=== PATIENT | female | born 1960 | race Caucasian/White ===

== ENCOUNTER 2019-11-22 13:08 | Outpatient (CLI) | payer MEDICARE, OTHER ==
[2019-11-22] MEDS ORDERED: LIDOCAINE-MPF 1%, 5ML ONE (13:17)
[2019-11-22] MEDS ORDERED: ROPivacaine/PF 0.2%, 10 ML ONE (13:17)
[2019-11-22] MEDS ORDERED: TRIAMCINOLONE ACETONIDE 40 MG/ML, 1ML ONE (13:17)
[2019-11-22] MEDS ORDERED: OMNIPAQUE 300 MG/ML, 10ML VIAL ONE (15:39)
== END 2019-11-22 23:59 | disposition home or self-care (01) ==
LOC: RAD 13:08
PROVIDERS: ATTEND Nurse Practitioner
DX: M19.072 Primary osteoarthritis, left ankle and foot (principal); G90.522 Complex regional pain syndrome I of left lower limb
CPT/HCPCS: 20605; 77002; J2795; J3301; Q9967

== ENCOUNTER 2020-03-20 08:00 | Outpatient (CLI) | payer MEDICARE, OTHER ==
[~2020-03-20 08:00] MED LIST: LIDOCAINE-MPF 1%, 5ML ONE; ROPivacaine/PF 0.2%, 10 ML ONE; TRIAMCINOLONE ACETONIDE 40 MG/ML, 1ML ONE
[2020-03-20] MEDS ORDERED: TRIAMCINOLONE ACETONIDE 40 MG/ML, 1ML ONE ×2 (14:56→15:19)
[2020-03-20] MEDS ORDERED: BUPIVACAINE/PF 0.5% ONE (14:56)
[2020-03-20] MEDS ORDERED: LIDOCAINE 1%, 10ML ONE (14:56)
[2020-03-20] MEDS ORDERED: OMNIPAQUE 300 MG/ML, 10ML VIAL ONE ×2 (15:00)
== END 2020-03-20 23:59 | disposition home or self-care (01) ==
LOC: RAD 08:00
PROVIDERS: ATTEND Nurse Practitioner
DX: M19.072 Primary osteoarthritis, left ankle and foot (principal); G90.522 Complex regional pain syndrome I of left lower limb
CPT/HCPCS: 20600; 77002; Q9967; J2795; J3301

== ENCOUNTER 2020-04-02 06:50 | Inpatient (IN) | payer MEDICARE, OTHER ==
[~2020-04-02] VITALS: Ht 162.6 cm; Wt 101.5 kg
[2020-04-02] MEDS ORDERED: FENTANYL PF 100 MCG/2ML ONE (06:57)
[2020-04-02] MEDS ORDERED: BIVALIRUDIN 250 MG ONE ×2 (06:57→08:15)
[2020-04-02] MEDS ORDERED: MIDAZOLAM 1 MG/ML, 5ML ONE (06:57)
[2020-04-02] MEDS ORDERED: TICAGRELOR 90 MG TABLET ONE (06:57)
[2020-04-02] MEDS ORDERED: VERAPAMIL 2.5 MG/ML, 2ML ONE (06:57)
[2020-04-02] MEDS ORDERED: LIDOCAINE 1%, 20ML ONE (06:57)
[2020-04-02] MEDS ORDERED: HEPARIN 25,000 UNITS/250ML PMX 250 ML ONE ×2 (06:58→15:42)
--- NOTE | 2020-04-02 06:59 | NUR ---
Code cardiac called @ 0635 Cardiology called @ 0637 general production laborer aware @ 0639 Dr. Archibald called back @ 0641 1 person here from labor contractor @ 0700 Dr. Archibald here @ 0701
--- NOTE | 2020-04-02 07:00 | NUR ---
PT B[place] [facility] [place] [facility] [place] STATES SUBSTERNAL CP RADIATING TO HER BACK STARTING YESTERDAY. PT CAME TO ER LAST NIGHT AROUND 0300. PT WITH REPORTED EKG CHANGS AND +TROP. PT SENT TRANSFERED FOR POSSIBLE CARDIAC CATH. ENROUTE, PT GIVEN ASA 324MG WELL FENTANYL 50MCG. ENDODONTIST, HEPARIN GTT INITIATED, 4000UNIT BOLUS GIVEN. WHEN PT ARRIVED TO ER, PT STATES CP AT 2/10, PT IS ALERT AND ORIENTED, PROTECTING OWN AIRWAY WELL. AWAITING CARDIOLOGY ASSESSMENT.
--- NOTE | 2020-04-02 07:12 | NUR ---
PT TO [facility]. PT'S JEWLERY REMOVED AND PLACED IN RED BIO BAG, THEATER EDUCATION TEACHER RN EUGENE AWARE. AL PT'S BELONGINGS TO THEATER EDUCATION TEACHER WITH PT.
[2020-04-02 07:23] LABS: MEAN CORPUSCULAR HEMOGLOBIN 30.3 pg (27.0-34.8); MEAN CORPUSCULAR HGB CONC 32.6 g/dL (32.4-35.8); MEAN PLATELET VOLUME 8.5 fL (7.4-10.4); PLATELET COUNT 229 x10^3/uL (130-400); RED BLOOD COUNT 4.59 x10^6/uL (3.82-5.3); RED CELL DISTRIBUTION WIDTH 13.4 % (9.6-15.2)
[2020-04-02] MEDS ORDERED: HEPARIN 25,000 UNITS/250ML PMX 250 ML IV PRN ×2 (07:30→16:00)
[2020-04-02] MEDS ORDERED: HEPARIN 5,000 UNITS/ML, 1ML IV PRN (07:30)
[2020-04-02] MEDS ORDERED: HEPARIN 5,000 UNITS/ML, 1ML IV ONE (07:30)
[2020-04-02 07:33] LABS: ALBUMIN 3.5 g/dL (3.4-5.0); ANION GAP 7 mmol/L (5-15); CALCIUM 8.8 mg/dL (8.5-10.1); CHLORIDE 111 mmol/L (98-107); CREATININE 1.23 mg/dL (0.55-1.02)
[2020-04-02 07:36] LABS: BASOPHILS # (AUTO) 0.05 x10^3/uL (0-0.1); BASOPHILS % (AUTO) 0 % (0-1); EOSINOPHILS % (AUTO) 0 % (1-7); LYMPHOCYTES # (AUTO) 1.09 x10^3/uL (1-3.4); LYMPHOCYTES % (AUTO) 6 % (22-44); MD SCAN; MONOCYTES # (AUTO) 0.58 x10^3/uL (0.2-0.8); MONOCYTES % (AUTO) 3 % (2-9); NEUTROPHILS # (AUTO) 17.52 x10^3/uL (1.8-6.8); NEUTROPHILS % (AUTO) 91 % (42-75)
[2020-04-02] MEDS ORDERED: FUROSEMIDE 40 MG/4 ML ONE (07:58)
[2020-04-02 08:31] LABS: INTERNATIONAL NORMALIZED RATIO 0.99 (0.93-1.1); PROTHROMBIN TIME 10.5 Seconds (9.6-11.5)
[2020-04-02] MEDS ORDERED: HEPARIN 25,000 UNITS in DEXTROSE 20% 500 ML IV SCH (08:44)
[2020-04-02] MEDS ORDERED: HEPARIN 25,000 UNITS in DEXTROSE 10% 500 ML IV SCH (08:44)
[2020-04-02] MEDS ORDERED: ASPIRIN 81 MG TABLET EC PO SCH (09:00)
[2020-04-02] MEDS ORDERED: HEPARIN 25,000 UNITS in DEXTROSE 5% 500 ML IV SCH (09:00)
[2020-04-02] MEDS ORDERED: NITROGLYCERIN/D5W PMX 250 ML ONE (09:09)
[2020-04-02 11:18] LABS: PLATELET COUNT 242 x10^3/uL (130-400)
[2020-04-02] MEDS ORDERED: NITROGLYCERIN/D5W PMX 250 ML IV PRN (11:30)
[2020-04-02] MEDS ORDERED: PROPOFOL 100 ML IV ONE (11:35)
[2020-04-02 11:50] LABS: ANION GAP 8 mmol/L (5-15); CALCIUM 8.1 mg/dL (8.5-10.1); CHLORIDE 110 mmol/L (98-107); CREATININE 1.24 mg/dL (0.55-1.02)
[2020-04-02] MEDS ORDERED: LIDOCAINE-MPF 1%, 2ML ENDO PRN (12:00)
[2020-04-02] MEDS ORDERED: ACETAMINOPHEN 650 MG/20.3 ML UDC PO/NG PRN (12:00)
[2020-04-02] MEDS ORDERED: FAMOTIDINE 20 MG/2 ML IV SCH (12:00)
[2020-04-02] MEDS ORDERED: PHARMACY MAY ADJ FOR RENAL FX MC SCH (12:00)
[2020-04-02] MEDS ORDERED: ONDANSETRON 2MG/ML, 2ML IVPush PRN (13:00)
[2020-04-02] MEDS ORDERED: ASPIRIN 81 MG TABLET CHEW ONE (13:18)
[2020-04-02] MEDS: FENTANYL PF 100 MCG/2ML IVPush PRN ×2 (13:22→17:11)
[2020-04-02] MEDS ORDERED: DOBUTAMINE/D5W PMX 250 ML ONE (13:23)
[2020-04-02] MEDS ORDERED: DOBUTAMINE/D5W PMX 250 ML IV PRN (13:30)
[2020-04-02] MEDS: TICAGRELOR 90 MG TABLET PO SCH ×2 (13:32→21:24)
[2020-04-02] MEDS: AMPICILLIN/SULBACTAM 3 GM in SODIUM CHLORIDE 0.9% 100 ML IV SCH ×2 (13:32→18:13)
[2020-04-02] MEDS: ASPIRIN 81 MG TABLET CHEW PO SCH (14:00)
[2020-04-02] MEDS: LACTATED RINGERS 1,000 ML IV SCH (14:30)
[2020-04-02] MEDS: PROPOFOL 100 ML IV PRN ×3 (14:46→21:20)
[2020-04-02] MEDS ORDERED: DOPAMINE/D5W PMX 250 ML ONE (15:46)
[2020-04-02] MEDS: HEPARIN 25,000 UNITS in SODIUM CHLORIDE 0.45% 495 ML IV PRN (16:48)
[2020-04-02] MEDS ORDERED: PROPOFOL 10 MG/ML, 100ML IV ONE (19:31)
[2020-04-02] MEDS ORDERED: ETOMIDATE 20 MG/10 ML ONE (19:31)
[2020-04-02] MEDS ORDERED: ROCURONIUM 10MG/ML,5ML ONE (19:31)
[2020-04-02] MEDS ORDERED: PROPOFOL 10 MG/ML, 20ML ONE (19:31)
[2020-04-02] MEDS ORDERED: ATORVASTATIN 80 MG TABLET PO SCH (21:00)
[2020-04-03] MEDS: AMPICILLIN/SULBACTAM 3 GM in SODIUM CHLORIDE 0.9% 100 ML IV SCH ×4 (00:35→17:55)
[2020-04-03] MEDS: DOPAMINE/D5W PMX 250 ML IV PRN ×2 (00:35→10:37)
[2020-04-03] MEDS: PROPOFOL 100 ML IV PRN ×4 (00:36→15:56)
[2020-04-03] MEDS: FAMOTIDINE 20 MG/2 ML IV SCH ×2 (00:40→11:56)
[2020-04-03] MEDS: LACTATED RINGERS 1,000 ML IV SCH ×2 (00:41→10:55)
[2020-04-03 04:00] VITALS: BP 105/68
[2020-04-03 05:30] LABS: ANION GAP 11 mmol/L (5-15); CALCIUM 8.2 mg/dL (8.5-10.1); CHLORIDE 110 mmol/L (98-107); CREATININE 1.52 mg/dL (0.55-1.02); MEAN CORPUSCULAR HEMOGLOBIN 30.7 pg (27.0-34.8); MEAN CORPUSCULAR HGB CONC 33.4 g/dL (32.4-35.8); MEAN PLATELET VOLUME 8.9 fL (7.4-10.4); PLATELET COUNT 272 x10^3/uL (130-400); RED BLOOD COUNT 4.44 x10^6/uL (3.82-5.3); RED CELL DISTRIBUTION WIDTH 13.7 % (9.6-15.2)
[2020-04-03 06:10] LABS: MD YES
[2020-04-03 06:12] LABS: <RBC MORPHOLOGY> NORMAL; LYMPH#(MANUAL) 2.35 x10^3/uL (1-3.4); LYMPHS% (MANUAL) 8 % (22-44); MONOS#(MANUAL) 0.88 x10^3/uL (0.3-2.7); MONOS% (MANUAL) 3 % (2-9); SEG#(MANUAL) 26.17 x10^3/uL (1.8-6.8); SEGS% (MANUAL) 89 % (42-75)
[2020-04-03 06:13] LABS: <PLATELET ESTIMATE> ADEQUATE; <PLT MORPHOLOGY> NORMAL PLT MORPH
[2020-04-03] MEDS ORDERED: MAGNESIUM SULFATE PMX 2GM/50ML 50 ML IV ONE (08:30)
[2020-04-03] MEDS: TICAGRELOR 90 MG TABLET PO SCH (09:11)
[2020-04-03] MEDS: ASPIRIN 81 MG TABLET CHEW PO SCH (09:11)
--- NOTE | 2020-04-03 09:24 | NUR ---
TF GOAL when ordered:VITAL AF 1.2 @ 55ML/HR w/ propofol: VITAL AF 1.2 @ 50ML/HR
[2020-04-03] MEDS: HEPARIN 25,000 UNITS in SODIUM CHLORIDE 0.45% 495 ML IV PRN (11:47)
[2020-04-03] MEDS ORDERED: morphine SULFATE 10 MG/ML, 1ML ONE ×5 (20:26→22:26)
[2020-04-03] MEDS ORDERED: LORazepam 2 MG/ML, 1ML ONE (20:27)
[2020-04-03] MEDS ORDERED: morphine SULFATE 10 MG/ML, 1ML IV PRN (20:30)
[2020-04-03] MEDS ORDERED: LORazepam 2 MG/ML, 1ML IVPush PRN (20:30)
[2020-04-03] MEDS ORDERED: LORazepam 2 MG/ML, 1ML IV PRN (20:30)
[2020-04-03] MEDS: MORPHINE SULFATE 4 MG/ML, 1ML IVPush PRN ×4 (20:55→22:29)
[2020-04-03] MEDS: ATROPINE OPHTH SOLN 1%, 5ML BC PRN ×3 (21:13→22:31)
[2020-04-03] MEDS: morphine SULFATE 100 MG in DEXTROSE 5% 90 ML IV PRN (23:06)
[2020-04-04] MEDS: morphine SULFATE 100 MG in DEXTROSE 5% 90 ML IV PRN ×2 (03:17→08:23)
[2020-04-04] MEDS: ATROPINE OPHTH SOLN 1%, 5ML BC PRN ×6 (03:17→23:15)
[2020-04-04] MEDS ORDERED: FAMOTIDINE 20 MG/2 ML IV SCH (12:00)
[2020-04-04] MEDS ORDERED: SCOPOLAMINE 1MG PATCH TD SCH (12:00)
[2020-04-04] MEDS ORDERED: HYDROmorphone 2 MG/ML, 1ML IVPush PRN (12:00)
[2020-04-04] MEDS: HYDROmorphone/PF 20 MG in SODIUM CHLORIDE 0.9% 98 ML IV PRN ×3 (12:59→22:14)
[2020-04-04] MEDS: LORazepam 2 MG/ML, 1ML IVPush SCH ×2 (14:55→20:31)
== END 2020-04-05 05:12 | disposition expired | DRG 215 ==
LOC: ED 07:07 → EDIP 07:16 → CCU 09:53 → 3WST 04-04 02:30
PROVIDERS: ADMIT Internal Medicine; ATTEND Internal Medicine
PROC: 027034Z Dilation of Coronary Artery, One Artery with Drug-eluting Intraluminal Device, Percutaneous Approach (ICD-10-PCS; 2020-04-02)
PROC: 4A023N8 Measurement of Cardiac Sampling and Pressure, Bilateral, Percutaneous Approach (ICD-10-PCS; 2020-04-02)
PROC: B211YZZ Fluoroscopy of Multiple Coronary Arteries using Other Contrast (ICD-10-PCS; 2020-04-02)
PROC: B215YZZ Fluoroscopy of Left Heart using Other Contrast (ICD-10-PCS; 2020-04-02)
PROC: 02HA3RJ Insertion of Short-term External Heart Assist System into Heart, Intraoperative, Percutaneous Approach (ICD-10-PCS; 2020-04-02)
PROC: 5A0221D Assistance with Cardiac Output using Impeller Pump, Continuous (ICD-10-PCS; 2020-04-02)
PROC: 0B9L8ZZ Drainage of Left Lung, Via Natural or Artificial Opening Endoscopic (ICD-10-PCS; 2020-04-02)
PROC: 0BH17EZ Insertion of Endotracheal Airway into Trachea, Via Natural or Artificial Opening (ICD-10-PCS; 2020-04-02)
PROC: 5A1945Z Respiratory Ventilation, 24-96 Consecutive Hours (ICD-10-PCS; 2020-04-02)
PROC: 02WAXRZ Revision of Short-term External Heart Assist System in Heart, External Approach (ICD-10-PCS; principal; 2020-04-03)
DX: I21.4 Non-ST elevation (NSTEMI) myocardial infarction (principal); A41.9 Sepsis, unspecified organism; J69.0 Pneumonitis due to inhalation of food and vomit; I50.43 Acute on chronic combined systolic (congestive) and diastolic (congestive) heart failure; J96.01 Acute respiratory failure with hypoxia; N17.0 Acute kidney failure with tubular necrosis; R65.21 Severe sepsis with septic shock; T82.528A Displacement of other cardiac and vascular devices and implants, initial encounter; I95.9 Hypotension, unspecified; R57.0 Cardiogenic shock; F31.9 Bipolar disorder, unspecified; E78.5 Hyperlipidemia, unspecified; F17.210 Nicotine dependence, cigarettes, uncomplicated; I11.0 Hypertensive heart disease with heart failure; R73.9 Hyperglycemia, unspecified; E66.01 Morbid (severe) obesity due to excess calories; Z66 Do not resuscitate; I34.0 Nonrheumatic mitral (valve) insufficiency; E83.42 Hypomagnesemia; I25.10 Atherosclerotic heart disease of native coronary artery without angina pectoris; I49.3 Ventricular premature depolarization; I25.5 Ischemic cardiomyopathy; D72.829 Elevated white blood cell count, unspecified; G47.33 Obstructive sleep apnea (adult) (pediatric); Z68.34 Body mass index [BMI] 34.0-34.9, adult; Z90.710 Acquired absence of both cervix and uterus; Z51.5 Encounter for palliative care; Y71.1 Therapeutic (nonsurgical) and rehabilitative cardiovascular devices associated with adverse incidents; Y92.239 Unspecified place in hospital as the place of occurrence of the external cause
CPT/HCPCS: 33990; 36600; 71045; 80047; 80048; 82040; 82803; 82962; 83735; 83880; 84478; 84484; 85014; 85018; 85025; 85049; 85347; 85520; 85610; 85730; 87070; 87081; 87205; 93005; 93306; 93308; 93460; 94002; 94003; 96374; 96375; 96376; 99156; 99157; 99285; C1760; C1769; C1894; C9600; G0378; J0295; J0583; J1170; J1265; J1644; J1940; J2250; J2704; J3010; C1725; C1874; C1887; J2060; J2270; J3475; J3490; J7050; J7060; J7120; Q9967